=== PATIENT | male | born 1980 | race American Indian/Alaskan Native ===

== ENCOUNTER 2019-07-08 05:06 | Emergency (ER) | payer SELFPAY ==
[2019-07-08 06:37] LABS: Bilirubin,Urine NEG (Negative); Blood,Urine NEG (Negative); Color,Urine Yellow (Yellow); Mucus,Urine FEW /HPF; Protein,Urine <15 mg/dL mg/dL (Negative); Urobilinogen,Urine < 2.0 mg/dL (<2.0); WBC,Urine < 1.0 /HPF (0.0-6.0)
[2019-07-08] MEDS ORDERED: CYCLOBENZAPRINE 10 MG TAB PO ONE (07:17)
--- NOTE | 2019-07-08 07:40 | Emergency Department Report ---
ED Back Pain/Injury HPI - General Chief Complaint: Back Pain/Injury Stated Complaint: BACK PAIN Time Seen by Provider: 07/08/19 07:03 Source: patient Limitations: No Limitations - History of Present Illness Initial Comments: pt is a 38-year-old male presents emergency room with complaints of left middle back pain that began a couple weeks ago. He states that the pain is like a "muscle spasm or pulled muscle." He states that he does do heavy lifting at work. He denies any fall or injury. He denies any numbness, weakness, bowel or bladder incontinence. He states that the discomfort is worse with movement. He denies any fever, vomiting. He denies any past medical history. He denies any allergies medications. - Related Data Previous Rx's Medication Instructions Recorded Last Taken Type Cyclobenzaprine [Flexeril] 10 mg PO QHS PRN #12 tablet 07/08/19 Unknown Rx Naproxen [EC-Naproxen] 500 mg PO BID PRN #14 tablet. 07/08/19 Unknown Rx Allergies Allergy/AdvReac Type Severity Reaction Status Date / Time No Known Allergies Allergy Unverified 07/08/19 05:13 ED Review of Systems ROS: Stated complaint: BACK PAIN Other details as noted in HPI Comment: All other systems reviewed and negative ED Past Medical Hx - Past Medical History Previous Medical History?: No - Surgical History Past Surgical History?: No - Social History Smoking Status: Former Smoker Substance Use Type: None - Medications Home Medications: Home Medications Medication Instructions Recorded Confirmed Last Taken Type Cyclobenzaprine [Flexeril] 10 mg PO QHS PRN #12 tablet 07/08/19 Unknown Rx Naproxen [EC-Naproxen] 500 mg PO BID PRN #14 tablet. 07/08/19 Unknown Rx ED Physical Exam - General Limitations: No Limitations General appearance: alert, in no apparent distress - Head Head exam: Present: atraumatic, normocephalic - Eye Eye exam: Present: normal appearance - ENT ENT exam: Present: mucous membranes moist - Neck Neck exam: Present: normal inspection, full ROM. Absent: tenderness - Respiratory Respiratory exam: Present: normal lung sounds bilaterally. Absent: respiratory distress, wheezes, rales, rhonchi, stridor, chest wall tenderness, accessory muscle use, decreased breath sounds, prolonged expiratory - Cardiovascular Cardiovascular Exam: Present: regular rate, normal rhythm, normal heart sounds. Absent: systolic murmur, diastolic murmur, rubs, gallop - Back Exam Back exam: Present: normal inspection, full ROM, paraspinal tenderness (left sided T-spine muscular TTP, no midline C-spine, T-spine, or L-spine tenderness, no step offs, no deformities). Absent: vertebral tenderness - Neurological Exam Neurological exam: Present: alert, oriented X3, CN II-XII intact, normal gait, other (equal cattle brander strength, 5/5 strength in the BUE/BLE, sensation intact throughout, no focal neuro deficit). Absent: motor sensory deficit - Psychiatric Psychiatric exam: Present: normal affect, normal mood - Skin Skin exam: Present: warm, dry, intact ED Course Vital Signs 07/08/19 07/08/19 05:10 08:02 Temperature 98.0 F 98.3 F Pulse Rate 66 64 Respiratory 18 16 Rate Blood Pressure 114/73 Blood Pressure 124/73 [Left] O2 Sat by Pulse 100 100 Oximetry ED Medical Decision Making - Lab Data Lab Results 07/08/19 Range/Units 05:53 Urine Color Yellow (Yellow) Urine Turbidity Clear (Clear) Urine pH 6.0 (5.0-7.0) Ur Specific [place] 1.020 (1.003-1.030) Urine Protein <15 mg/dl (Negative) mg/dL Urine Glucose (UA) Neg (Negative) mg/dL Urine Ketones Neg (Negative) mg/dL Urine Blood Neg (Negative) Urine Nitrite Neg (Negative) Urine Bilirubin Neg (Negative) Urine Urobilinogen < 2.0 (<2.0) mg/dL Ur Leukocyte Esterase Neg (Negative) Urine WBC (Auto) < 1.0 (0.0-6.0) /HPF Urine RBC (Auto) 1.0 (0.0-6.0) /HPF U Epithel Cells (Auto) < 1.0 (0-13.0) /HPF Urine Mucus Few /HPF Vital Signs 07/08/19 07/08/19 05:10 08:02 Temperature 98.0 F 98.3 F Pulse Rate 66 64 Respiratory 18 16 Rate Blood Pressure 114/73 Blood Pressure 124/73 [Left] O2 Sat by Pulse 100 100 Oximetry - Medical Decision Making pt is a 38-year-old male presents emergency room with complaints of left middle back pain that began a couple weeks ago. He states that the pain is like a "muscle spasm or pulled muscle." He states that he does do heavy lifting at work. He denies any fall or injury. He denies any numbness, weakness, bowel or bladder incontinence. He states that the discomfort is worse with movement. H e denies any fever, vomiting. He denies any past medical history. He denies any allergies medications. vitals are normal. on exam: left sided T-spine muscular TTP, no midline C-spine, T-spine, or L-spine tenderness, no step offs, no deformities, equal cattle brander strength, 5/5 strength in the BUE/BLE, sensation intact throughout, no focal neuro deficit. offered pt toradol injection and he declined. pt did not drive to the emergency department so his discomfort was treated with Flexeril and ibuprofen. pt has no red flag warning signs of back pain, he has no trauma, no unexplained weight loss, no neurological deficits, age is not greater than 50, no fever, no IV drug use, no steroid use, no history of cancer. Patient given prescription for naproxen and Flexeril for muscle strain. advised the patient to please take medication as prescribed as needed. Do not drive or operate heavy machinery while taking muscle relaxer. Advised patient to follow up with a primary care doctor and orthopedic doctor in the next 2-3 days. May use ice pack, heating pad, rest, epsom salt bath. Return to the emergency room for any new or worsening symptoms. - Differential Diagnosis strain, sprain, DDD, arthritis, disc herniation, spondylolysis Critical care attestation.: If time is entered above; I have spent that time in minutes in the direct care of this critically ill patient, excluding procedure time. ED Disposition Clinical Impression: Strain of muscle at thorax level Disposition: DC-01 TO HOME OR SELFCARE Is pt being admited?: No Does the pt Need Aspirin: No Condition: Stable Instructions: Muscle Strain (ED) Additional Instructions: please take medication as prescribed as needed. Do not drive or operate heavy machinery while taking muscle relaxer. Advised patient to follow up with a primary care doctor and orthopedic doctor in the next 2-3 days. May use ice pack, heating pad, rest, epsom salt bath. Return to the emergency room for any new or worsening symptoms. Prescriptions: Cyclobenzaprine [Flexeril] 10 mg PO QHS PRN #12 tablet PRN Reason: Muscle Spasm Naproxen [EC-Naproxen] 500 mg PO BID PRN #14 tablet. PRBrenton Reason: pain Referrals: [facility] [Provider Group] - 2-3 Days EUSEBIA VALENCIA MD [Staff Physician] - 2-3 Days Forms: Work/School Release Form(ED) Time of Disposition: 07:43 Print Language: AZERI
[2019-07-08] MEDS: KETOROLAC 60 MG/2 ML INJ IM ONE ×2 (07:45→07:46)
[2019-07-08] MEDS ORDERED: IBUPROFEN 800 MG TAB ONE (07:46)
[2019-07-08] MEDS ORDERED: IBUPROFEN 800 MG TAB PO ONE (07:50)
[2019-07-08 08:25] VITALS: BP 124/73
== END 2019-07-08 08:02 | disposition home or self-care (01) ==
LOC: ED 05:06
DX: S29.012A Strain of muscle and tendon of back wall of thorax, initial encounter (principal); Z87.891 Personal history of nicotine dependence; Z79.899 Other long term (current) drug therapy; X58.XXXA Exposure to other specified factors, initial encounter; Y93.89 Activity, other specified; Y92.89 Other specified places as the place of occurrence of the external cause; Y99.8 Other external cause status
CPT/HCPCS: 81001; J1885